=== PATIENT | female | born 1995 | race Caucasian/White ===

== ENCOUNTER 2023-02-23 15:15 | Outpatient (RCR) | payer OTHER ==
[~2023-02-23 15:15] MED LIST: ZOLOFT
== END 2023-02-24 | disposition home or self-care (01) ==
LOC: MKS.ESL.OT
DX: S52.552D Other extraarticular fracture of lower end of left radius, subsequent encounter for closed fracture with routine healing (principal); X58.XXXD Exposure to other specified factors, subsequent encounter

== ENCOUNTER 2023-03-09 15:15 | Outpatient (RCR) | payer OTHER | END 2023-03-10 15:20 | disposition home or self-care (01) | LOC: MKS.ESL.OT 15:15 | DX: S52.552D Other extraarticular fracture of lower end of left radius, subsequent encounter for closed fracture with routine healing (principal); X58.XXXD Exposure to other specified factors, subsequent encounter ==